=== PATIENT | male | born 1945 | race Caucasian/White ===

== ENCOUNTER → 2017-03-25 | Outpatient (CLI) | payer BC, MEDICARE ==
[2015-07-21 11:00] VITALS: BP 107/61
[~2017-03-25] MED LIST: DOCU-109 PO; GADOBUTROL 7.5 MMOL/7.5 ML VIAL IV ONE; OXYC-323 PO; OXYC-328 PO
--- NOTE | 2017-03-25 12:01 | KCIC ---
MRI of the cervical spine without contrast 03/25/2017 CLINICAL HISTORY: Neck and bilateral arm pain. TECHNIQUE: Unenhanced T1-weighted, T2-weighted and inversion recovery sagittal and gradient echo and T2-weighted axial images of the cervical spine were obtained. FINDINGS: Minimal lateral curvature of the cervical spine is seen convex to the right. There is straightening of the normal cervical lordosis. Degenerative signal changes and loss of height are seen involving all of the disks of the cervical spine. Degenerative signal changes are seen within the marrow surrounding these discs. No area of abnormal signal intensity is seen involving the cervical spinal cord. On the axial images at the C2-3 disc space there is a mild generalized disc bulge. Degenerative changes are seen involving the uncovertebral and facet joints, left greater than right. These findings do not result in significant central spinal canal stenosis. Mild left neural foraminal stenosis is seen. The right neural foramen is patent. At the C3-4 disc space there is a mild generalized disc bulge. Degenerative changes are seen involving the uncovertebral and facet joints bilaterally. The disc bulge is eccentric to the left. These findings efface the anterior and posterior CSF resulting in mild central spinal canal stenosis with mild left greater than right cord impingement. Moderate bilateral neural foraminal stenosis is seen. At the C4-5 disc space there is a moderate generalized disc bulge. This is eccentric to the left. Degenerative changes are seen involving the uncovertebral and facet joints bilaterally. These findings when combined result in moderate to severe central spinal canal stenosis with moderate to severe cord impingement. Mild to moderate left greater than right neural foraminal stenosis is seen. At the C5-6 disc space there is a mild generalized disc bulge. Superimposed on this disc bulge is a focal central disc osteophyte complex. This measures 5 mm in AP diameter. Degenerative changes are seen involving the uncovertebral and facet joints bilaterally. These findings result in moderate central spinal canal stenosis with moderate cord impingement. Mild to moderate bilateral neural foraminal stenosis is seen. At the C6-7 disc space there is a mild to moderate generalized disc bulge. This is eccentric to the right. Degenerative changes are seen involving the uncovertebral and facet joints, right greater than left. These findings when combined efface the anterior CSF resulting in mild central spinal canal stenosis without evidence of cord impingement. Mild right than left neural foraminal stenosis is seen. At the C7-T1 disc space there is a mild generalized disc bulge. Degenerative changes are seen involving the facet joints bilaterally. These findings do not result in significant central spinal canal or neural foraminal stenosis. IMPRESSION: Degenerative changes are seen throughout the cervical spine. These findings result in mild central spinal canal stenosis at at C3-4 with mild left greater than right cord impingement, moderate to severe central spinal canal stenosis with moderate to severe cord impingement at C4-5, moderate central spinal canal stenosis with moderate cord impingement at C5-6 and mild central spinal canal stenosis without evidence of cord impingement at C6-7. Multilevel neural foraminal stenosis of varying severity is seen as outlined above. Electronically signed by: Jun Gayle MD (03/25/2017 11:58 AM) [facility]
== END | disposition home or self-care (01) ==
LOC: KCIC MRI 07:44
PROVIDERS: ATTEND Family Medicine
DX: M48.06 Spinal stenosis, lumbar region (principal); M51.36 Other intervertebral disc degeneration, lumbar region; M48.02 Spinal stenosis, cervical region; M79.672 Pain in left foot; M79.602 Pain in left arm
CPT/HCPCS: 72141; 72158; 82565; A9585

== ENCOUNTER → 2017-12-03 | Outpatient (CLI) | payer BC, MEDICARE | END | disposition home or self-care (01) | LOC: PNCL 10:10 | DX: M51.36 Other intervertebral disc degeneration, lumbar region (principal); M48.061 Spinal stenosis, lumbar region without neurogenic claudication; M79.605 Pain in left leg | CPT/HCPCS: 99214 ==

== ENCOUNTER → 2017-12-28 | Outpatient (CLI) | payer BC, MEDICARE ==
[~2017-12-28] MED LIST changes: -DOCU-109 PO; -GADOBUTROL 7.5 MMOL/7.5 ML VIAL IV ONE; +IOHEXOL 180 MG/ML 10 ML VIAL.; +LIDOCAINE 1% PF 2 ML VIAL.; -OXYC-323 PO; -OXYC-328 PO; +methylPREDNISolone ACETATE 40 MG/ML VIAL.; +methylPREDNISolone ACETATE 80 MG/ML VIAL.
== END ==
LOC: PNCL 13:29
DX: M51.16 Intervertebral disc disorders with radiculopathy, lumbar region (principal); M96.1 Postlaminectomy syndrome, not elsewhere classified; M48.062 Spinal stenosis, lumbar region with neurogenic claudication; M19.90 Unspecified osteoarthritis, unspecified site
CPT/HCPCS: 62323; J1030; J1040; Q9965

== ENCOUNTER → 2018-01-11 | Outpatient (CLI) | payer BC, MEDICARE | END | disposition home or self-care (01) | LOC: PNCL 09:03 | DX: M51.16 Intervertebral disc disorders with radiculopathy, lumbar region (principal); M48.061 Spinal stenosis, lumbar region without neurogenic claudication | CPT/HCPCS: 99212 ==

== ENCOUNTER → 2018-02-09 | Outpatient (CLI) | payer BC, MEDICARE ==
[~2018-02-09] MED LIST changes: -LIDOCAINE 1% PF 2 ML VIAL.; +LIDOCAINE 2% PF 2ML VIAL.
== END | disposition home or self-care (01) ==
LOC: PNCL 13:32
DX: M51.16 Intervertebral disc disorders with radiculopathy, lumbar region (principal); M48.062 Spinal stenosis, lumbar region with neurogenic claudication; M96.1 Postlaminectomy syndrome, not elsewhere classified; M19.90 Unspecified osteoarthritis, unspecified site; Z82.49 Family history of ischemic heart disease and other diseases of the circulatory system; Z79.899 Other long term (current) drug therapy
CPT/HCPCS: 62323; J1030; J1040; J2001; Q9965

== ENCOUNTER → 2018-03-02 | Outpatient (CLI) | payer BC, MEDICARE ==
[2017-05-14 10:58] VITALS: BP 121/74
[~2018-03-02] MED LIST changes: +CETI10TA22 PO; +DIPH25CA58 PO; +DOCU-109 PO; +FAMO20TA5 PO; +HYDR-2762 PO; +IBUP-1027 PO; +IBUP-1060 PO; -IOHEXOL 180 MG/ML 10 ML VIAL.; -LIDOCAINE 2% PF 2ML VIAL.; +NAPR-695 PO; +OXYC-323 PO; +OXYC-328 PO; -methylPREDNISolone ACETATE 40 MG/ML VIAL.; -methylPREDNISolone ACETATE 80 MG/ML VIAL.
--- NOTE | 2018-03-02 17:56 | PAIN ---
DATE OF SERVICE: 03/02/2018 DIAGNOSES: 1. Lumbar radiculopathy with lumbar degenerative disk disease, post-lumbar laminectomy syndrome with spinal stenosis and neurogenic claudication. 2. Cervical radiculopathy with cervical degenerative disk disease and post-cervical laminectomy syndrome. HISTORY OF PRESENT ILLNESS: The patient is a 73-year-old male who returns for followup status post lumbar epidural steroid injection x 2. The patient is doing very well with about 75% improvement in his low back and left lower extremity. The patient reports his main complaint now is his neck and right upper extremity. He has had previous surgery on his neck with his MRI scan of the cervical spine, which was done 11/2017 showing significant multilevel spinal canal stenosis throughout the cervical spine, most pronounced at C6-C7 with iydtwjca-th-kptlvn stenosis. The patient reports this is becoming much more noticeable especially when he is playing the piano or holding objects. He has been dropping somethings. He dropped his notebook actually today while I was talking to him with his right arm. The patient reports it is aching and becoming much worse in the right arm with some motor loss and dropping items as noted. The patient reports it is aching, tingling, on and off in intensity, rated a 9 on a scale of 10 at its worst, 7 on average, 5 at its least and is a 7 today. The patient reports no new motor or sensory deficits of lower extremities. He is doing much better with the back and left leg, but has pain in his neck and shoulder, upper extremity with radiating pain has significantly increased over the past 2-3 weeks. The patient reports it is worse at night, awaken him from sleep frequently as well. PHYSICAL EXAMINATION: VITAL SIGNS: The patient's blood pressure is 151/96, pulse 72, respirations are 16, temperature is 98.0 degrees Fahrenheit, height is 5 feet 5 inches, weight is 152 pounds. GENERAL: The patient is awake, alert, oriented, appropriate, very pleasant demeanor. HEENT: Head shows normocephalic, atraumatic. Extraocular movements are intact, symmetrical. Oral cavity, mucous membranes are moist and pink. Dentition is intact. NECK: Shows anterior throat supple without palpable lymphadenopathy noted. Swallow reflex is symmetrical. CHEST: Shows normal on inspection. Breath sounds are clear. HEART: Shows S1, S2 clear. ABDOMEN: Soft, nontender, nondistended. BACK: Shows spine grossly in the midline. Cervical paraspinous musculature shows symmetrical on inspection, with palpation shows some qgbh-yy-ezqvsipd tenderness mostly in the inferior aspect of the cervical paraspinous musculature in the superior medial trapezius on the right greater than left, but symmetrical without evidence of atrophy, hypertrophy. No trigger points or radiation of pain. The patient has good rotational motion of cervical spine, both laterally as well as extension and flexion without significant increase in pain as well. EXTREMITIES: The patient's upper extremities show deep tendon reflexes 2+ in the biceps, triceps tendons. Motor exam is approximately 4 on a scale of 5 on the right, 5/5 on the left with blind installer strength bicep and tricep flexion. Shoulder shrug is strong and intact with some minor pain reported on the right side with resistance. Abduction of shoulders, however, is tender past 90 degrees with 180 degrees tenderness on the right side with radiating pain into the anterior biceps on the right with resistance. Options were discussed with the patient. The patient's old chart was reviewed as his current medication regimen and updated. Current review of systems is updated today as well. He is having increased radicular symptoms in the C6-C7 dermatomal distribution on the right arm. We will preauthorize the patient for a cervical epidural steroid injection as he is doing much better with his low back and left leg. His right arm again significant radicular pattern of pain, which the patient reports is somewhere in that prior to his cervical fusion again with MRI scan from showing significant stenosis at the C6-C7 level on the right as well. The patient will be given Medrol Dosepak in the meantime, was given instructions and side effects to be aware of with the medication. Follow up in approximately 2 weeks for plan on cervical epidural steroid injection at that time. ASSESSMENT: The patient has been doing stretching and strengthening exercises with his right upper extremity as well as his neck and shoulders ongoing. VIPUL ALONZO MD DR: JOSUÉ/jena JOB#: [id number] / [id number]
== END | disposition home or self-care (01) ==
LOC: PNCL 13:32
PROVIDERS: ATTEND Anesthesiology
DX: M51.16 Intervertebral disc disorders with radiculopathy, lumbar region (principal); M50.10 Cervical disc disorder with radiculopathy, unspecified cervical region; Z82.49 Family history of ischemic heart disease and other diseases of the circulatory system; Z79.899 Other long term (current) drug therapy
CPT/HCPCS: 99212

== ENCOUNTER → 2018-05-26 | Outpatient (CLI) | payer BC, MEDICARE ==
[2017-05-14 10:58] VITALS: BP 121/74
[~2018-05-26] MED LIST changes: +ACET325T9 PO; +ASPI1TAB58 PO; +CLIN150C14 PO; -HYDR-2762 PO; +HYDR-2765 PO; +HYDR-3164 PO; +METH750T2 PO; +MULT-658 PO; -OXYC-323 PO; -OXYC-328 PO; +OXYC1TAB15 PO; +OXYC1TAB22 PO
[2018-05-26 14:47] LABS: BASO # 0.1 x10^3/uL (0.0-0.2); BASO % 2 % (0-3); EOS # 0.3 x10^3/uL (0.0-0.7); EOS % 4 % (0-3); HEMOGLOBIN 13.9 g/dL (13.0-17.5); LYMPH # 1.5 x10^3/uL (1.0-4.8); LYMPH % 25 % (24-48); MEAN CORPUSCULAR HEMOGLOBIN 31 pg (25-35); MEAN CORPUSCULAR HGB CONC 35 g/dL (31-37); MEAN CORPUSCULAR VOLUME 89 fL (79-100); MONO # 0.7 x10^3/uL (0.0-1.1); MONO % 11 % (0-9); NEUT # 3.6 x10^3uL (1.8-7.7); NEUT % 58 % (31-73); PLATELET COUNT 232 x10^3/uL (140-400); RED BLOOD COUNT 4.49 x10^6/uL (4.30-5.70); RED CELL DISTRIBUTION WIDTH 13.3 % (11.5-14.5); WHITE BLOOD COUNT 6.2 x10^3/uL (4.0-11.0)
[2018-05-26 15:10] LABS: ALBUMIN 3.8 g/dL (3.4-5.0); ALBUMIN/GLOBULIN RATIO 1.3 (1.0-1.7); CALCIUM 8.7 mg/dL (8.5-10.1); GFR 73.7; POTASSIUM 4.1 mmol/L (3.5-5.1); TOTAL BILIRUBIN 0.4 mg/dL (0.2-1.0); TOTAL PROTEIN 6.8 g/dL (6.4-8.2)
== END | disposition home or self-care (01) ==
LOC: SURGPAT 13:47
PROVIDERS: ATTEND Neurological Surgery
DX: Z01.818 Encounter for other preprocedural examination (principal); M48.02 Spinal stenosis, cervical region; M54.12 Radiculopathy, cervical region
CPT/HCPCS: 36415; 80053; 85025; 87641

== ENCOUNTER 2018-06-02 10:30 | Observation (INO) | payer BC, MEDICARE ==
--- NOTE | 2018-06-01 16:55 | PREOP HP ---
DATE OF SERVICE: 06/02/2018 HISTORY OF PRESENT ILLNESS: The patient is a pleasant 73-year-old who has had cervical epidural steroid injections for pain, which he notes is in his neck and radiates into his right arm, forearm and hand. He notes numbness in the middle, ring and little fingers of his right hand. The problem started in 11/2017. He began spontaneously. He rates his pain as an 8/10. He feels the pain is constant. He says the change in position helps with his pain. He has been taking ibuprofen. He had epidural steroid injections, which he said lasted about few weeks. He, in the past, has undergone anterior cervical surgery at C4-C5 and C5-C6 and did well. PAST MEDICAL HISTORY: Arthritis. PAST SURGICAL HISTORY: Lumbar microdecompression L4-L5 with removal of synovial cyst in 07/2015 and ACDF at C4-C5, C5-C6 in 05/2017. FAMILY HISTORY: Heart disease and hypertension. 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 . He exercises weekly. He denies tobacco use. He consumes alcohol 1-2 times per week. ALLERGIES: No known drug allergies. CURRENT MEDICATIONS: Tylenol, famotidine, Benadryl, ibuprofen. REVIEW OF SYSTEMS: A 12-point review of systems was obtained and is noncontributory except for that mentioned above. PHYSICAL EXAMINATION: NEUROSURGERY EXAMINATION: GENERAL APPEARANCE: Alert, pleasant, no acute distress. HEAD: Normocephalic and atraumatic. NECK AND THYROID: Jvnm-wn-wptjqgdx tenderness with palpation of posterior cervical region, well healed incision. SKIN: Warm and dry. MUSCULOSKELETAL: Cervical paraspinal muscle bulk is normal, restricted range of motion of the cervical spine. Normal range of motion of the upper extremities bilaterally. EXTREMITIES: No clubbing, cyanosis or edema. NEUROLOGIC: Alert and oriented x 3, normal recent and remote memory, strength 5/5 in bilateral upper and lower extremities, sensory was intact to light touch in the upper and lower extremities except for decrease in sensation in middle, ring and little fingers of the right hand, reflexes were present and symmetric in the upper and lower extremities bilaterally, normal gait. IMAGING: I reviewed a cervical MRI scan. On that study, there is moderately severe stenosis at C6-C7. There is lateral recess stenosis, which is present bilaterally, which results in severe bilateral neural foraminal narrowing. ASSESSMENT/PLAN: I believe the problems at C6-C7 are responsible for the majority of his symptoms. My recommendation is consider an ACDF at this level. I discussed this with him in detail. He understands the surgery and the risks. He would like to go ahead. We will make the arrangements. EDWINA GEORGE MD DR: HERNAN/jena JOB#: [id number] / [id number] OMARI
[2018-06-02] VITALS (11 sets, daily range): BP systolic 132–171; BP diastolic 87–104
[~2018-06-02] VITALS: Ht 165.1 cm; Wt 72.1 kg
[~2018-06-02 10:30] MED LIST changes: +0.9 % SODIUM CHLORIDE 20 ML VIAL. IJ ONE; +BACITRACIN 50,000 UNIT in IV NORMAL SALINE 1000ML BAG 1,000 ML IRR ONE; +BUPIVAC MPF-EPI 0.5%-1:200000 30 ML VIAL. ONE; +GELATIN SPONGE SIZE 100. ONE; -HYDR-3164 PO; +HYDROmorphone 2 MG/ML VIAL IV PRN; +IV RINGERS,LACTATED 1000ML 1,000 ML IV SCH; +LIDOCAINE 1% PF 2 ML VIAL. ID PRN; +LIDOCAINE 2% PF Vial for OR 5 ML VIAL. ONE; -METH750T2 PO; +MORPHINE SULFATE 2 MG/ML VIAL. IV PRN; +ONDANSETRON PF 4 MG/2 ML VIAL. IV PRN; +PROCHLORPERAZINE 10 MG/2 ML VIAL. IV PRN; +PROPOFOL 20 ML IV ONE; +PROPOFOL 50 ML IV ONE; +REMIFENTANIL 2 MG VIAL. IV ONE; +ROCURONIUM 50 MG/5 ML VIAL. ONE; +THROMBIN TOPICAL 20,000 UNIT SPRAY.SYRN KIT TP ONE; +fentaNYL PF VIAL 100 MCG/2 ML VIAL IV PRN; +fentaNYL PF VIAL 100 MCG/2 ML VIAL ONE
[2018-06-02] MEDS ORDERED: HYDR-3164 PO (11:23)
[2018-06-02] MEDS ORDERED: DESFLURANE > 120 MINUTES IH ONE (12:48)
[2018-06-02] MEDS ORDERED: DEXAMETHASONE SOD PHOS 20 MG/5 ML VIAL. ONE (12:48)
[2018-06-02] MEDS ORDERED: ePHEDrine PF IN SALINE 50 MG/5 ML DISP.SYRIN IV ONE (12:48)
[2018-06-02] MEDS ORDERED: PHENYLEPHRINE in 0.9% NACL PF 1 MG/10 ML SYRINGE. IV ONE (12:52)
[2018-06-02] MEDS ORDERED: THROMBIN TOPICAL 20,000 UNIT SPRAY.SYRN KIT TP ONE (13:06)
[2018-06-02] MEDS ORDERED: PROPOFOL 50 ML IV ONE (13:44)
[2018-06-02] MEDS ORDERED: ASA/APAP/CAFFEINE 250/250/65MG TABLET. PO PRN (15:45)
--- NOTE | 2018-06-02 15:47 | OP ---
DATE OF SURGERY: 06/02/2018 PREOPERATIVE DIAGNOSES: Cervical spinal stenosis, C6-C7 with cervical radiculopathy and myelopathy. POSTOPERATIVE DIAGNOSIS: Cervical spinal stenosis, C6-C7 with cervical radiculopathy and myelopathy. OPERATION PERFORMED: Anterior cervical microdiscectomy, C6-C7; anterior cervical interbody fusion, C6-C7; anterior cervical plate, C6-C7. The operation also included removal of hardware, C6. SURGEON: Gilmer George M.D. GEOSPATIAL SYSTEMS INTEGRATOR: ALMA ROSA Michael assisted with the exposure, the microdiskectomy as well as the interbody fusion cage, plate and closure. OPERATIVE INDICATIONS: The patient is a pleasant 73-year-old man who developed intractable neck, shoulder, and arm pain along with unsteadiness. Most of the numbness was in the right upper extremity. He noted difficulty with unsteadiness, which affected primarily his left leg. On imaging studies, he had an anterior fusion extending from C4 through C6 and at C6-C7 there was posterior disc bulging and hard osteophytic spurring, which is associated with severe cervical spinal stenosis and foraminal narrowing. I recommended an anterior cervical microdiscectomy and fusion after we spent a considerable amount of time with conservative measures trying to avoid further surgery. He understood the surgery, the risks, technique and he wished to go ahead. DESCRIPTION OF PROCEDURE: Following general endotracheal anesthesia, the patient was positioned supine on the operating room table. The anterior cervical region was prepped and draped in standard fashion. ERENDIRA hose and AV impulse boots were applied for DVT prophylaxis. The microscope was draped. Fluoroscopy was draped and brought into the field. Monitoring was established. Ancef 2 grams was given less than 1 hour prior to the initiation of the surgery. Using fluoroscopic guidance, an incision was made from the midline around toward the right side in a skin crease about 2 fingerbreadths above the sternal notch. I dissected down the skin and subcutaneous tissue. I dissected down to the medial aspect of the sternocleidomastoid and carotid artery sheath down the anterior cervical vertebral body. I worked superiorly gently to reach the area with a plate. There was considerable scarring and I gently dissected through the scar and exposed the inferior portion of the plate as well as the C6-C7 disc region. I removed the screws from C6 plate and placed a distraction pin. I also placed a distraction pin in the body of C7. I did place lateral retractors wedged in the longus colli muscle. I brought in the microscope during this time. The remainder of surgery was done with microscope using microscopic technique. Initially, the disc space was not visualized and was partially covered with hard disc and I drilled through this hard disc with a high speed air drill and then entered the disc space. I performed discectomy with pituitary rongeurs. During this time, I drilled away the inferior portion of the plate and removed this from the field. I trimmed away the large bone spurring and smoothed this down with the high speed air drill and then continued my work posteriorly with pituitary as well as endplate scrapers. I did distract the disc space gently and exposed the large spurring posteriorly. I drilled this largely away and then used the 1 and 2 mm micro Kerrisons to fully peel this back and remove this. There was considerable soft disc mixed with hard disc and as I worked the dura moved posteriorly nicely and the area opened up beautifully. I did open the posterior ligament with an arachnoid knife and opened laterally bilaterally. Following this, I felt I had an excellent decompression. I scraped cartilaginous endplate and then measured and placed a 7 mm interbody fusion cage, which was packed with allograft bone. It was gently tapped into position and then I placed a 12 mm plate and four 14 mm screws without difficulty. I explored carefully, assured myself of excellent hemostasis. Fluoroscopic images looked quite good. I irrigated copiously and then closed the wound in layers with absorbable sutures. The skin was closed with 4-0 subcuticular stitch. The operation went very well and the patient was taken uneventfully to recovery room. I was quite pleased with the surgery. GILMER GEORGE MD DR: HERNAN/jena JOB#: [id number] / [id number] OMARI
[2018-06-02] MEDS ORDERED: 0.9 % SODIUM CHLORIDE 10 ML DISP.SYRIN. IV PRN (16:00)
[2018-06-02] MEDS ORDERED: HYDROcodone/APAP 5/325MG 1 TAB TABLET PO PRN (16:00)
[2018-06-02] MEDS ORDERED: MAGNESIUM HYDROXIDE 2,400 MG/30 ML ORAL.SUSP. PO PRN (16:00)
[2018-06-02] MEDS ORDERED: MAG HYDROX/ALUMINUM HYD/SIMETH 30 ML ORAL.SUSP PO PRN (16:00)
[2018-06-02] MEDS ORDERED: ACETAMINOPHEN 325 MG TABLET. PO PRN (16:00)
[2018-06-02] MEDS ORDERED: fentaNYL PF VIAL 100 MCG/2 ML VIAL IV PRN ×2 (16:00)
[2018-06-02] MEDS ORDERED: diphenhydrAMINE HCL 25 MG CAPSULE PO PRN (16:00)
[2018-06-02] MEDS ORDERED: ONDANSETRON PF 4 MG/2 ML VIAL. IV PRN (16:00)
[2018-06-02] MEDS ORDERED: CALCIUM CARBONATE 500 MG TAB.CHEW PO PRN (16:00)
[2018-06-02] MEDS: HYDROcodone/APAP 5/325MG 1 TAB TABLET PO PRN (18:03)
[2018-06-02] MEDS: POTASSIUM CL 20MEQ D5-0.45NACL 1,000 ML IV SCH (19:35)
[2018-06-02] MEDS: METHOCARBAMOL 750 MG TABLET PO SCH (20:39)
[2018-06-02] MEDS: ceFAZolin SODIUM 1 GM in IV DEXTROSE 5% 50 ML IV SCH (20:40)
[2018-06-02] MEDS: DOCUSATE SODIUM 100 MG CAPSULE. PO SCH (20:40)
[2018-06-03] MEDS: ceFAZolin SODIUM 1 GM in IV DEXTROSE 5% 50 ML IV SCH (03:46)
[2018-06-03 03:51] VITALS: BP 141/84
[2018-06-03] MEDS: HYDROcodone/APAP 5/325MG 1 TAB TABLET PO PRN (03:57)
[2018-06-03] MEDS: POTASSIUM CL 20MEQ D5-0.45NACL 1,000 ML IV SCH (05:55)
[2018-06-03 05:56] VITALS: BP 149/87
[2018-06-03] MEDS: DOCUSATE SODIUM 100 MG CAPSULE. PO SCH (07:56)
[2018-06-03] MEDS: METHOCARBAMOL 750 MG TABLET PO SCH (07:56)
[2018-06-03] MEDS ORDERED: MULTIVITAMIN with MINERAL TABLET. PO SCH (09:00)
--- NOTE | 2018-06-03 09:42 | DISCH ---
DISCHARGE INSTRUCTIONS Condition on Discharge Condition on Discharge: Stable Activity After Discharge Activity Instructions for Disc: Activity as tolerated, Avoid exertion Bathing Instructions: Shower-keep dressing dry, No Tub Bath until see Lifting Instructions after Dis: No heavy lifting, No pulling or pushing, Do not lift >10 pounds Exercise Instruction after Dis: Progress as tolerated Driving Instructions after Dis: Do not drive Weight Bearing Status after Di: As tolerated Diet after Discharge Diet after Discharge: Regular Additional Diet Restrictions: resume home diet Wound Incision Care Wound/Incision Care: Ice to area for comfort, May get incision wet Other wound/incision instructi: may remove dressing in 48 hrs if dry then may shower, no soaking Contacting the after DC Call your doctor for: Concerns you may have Follow-Up Follow up with: Dr. George's nurse in 2 weeks [phone] EDWINA GEORGE MD Jun 03, 2018 09:42
[2018-06-03] MEDS ORDERED: METH750T2 PO (09:44)
[2018-06-03] MEDS ORDERED: DOCU-109 PO (09:44)
[2018-06-03] MEDS ORDERED: PERFLUTREN PROTEIN-A MICROSPHR 0.22 MG/ML 3 ML VIAL. IV ONE ×2 (09:49→10:00)
--- NOTE | 2018-06-03 10:02 | DS ---
DATE OF DISCHARGE: 06/03/2018 DATE OF SURGERY: 06/02/2018 DISCHARGE DIAGNOSES: Cervical spinal stenosis at C6-C7 with cervical radiculopathy and myelopathy. OPERATION PERFORMED: Anterior cervical microdiscectomy and fusion C6-C7. HISTORY OF PRESENT ILLNESS: The patient is a pleasant 73-year-old who developed intractable neck, shoulder, and arm pain along with unsteadiness. Most of the numbness was in the right upper extremity. He did note difficulty with unsteadiness, which affected primarily his left leg. On imaging studies, he had a previous fusion extending from C4 through C6 and at C6-C7, there was posterior disk bulging and hard osteophytic spurring, which was associated with severe spinal stenosis and foraminal narrowing. I recommended ACDF at C6-C7. He understood the surgery and the risk and wished to proceed. HOSPITAL COURSE: He was admitted to the floor postoperatively, where he has done very well. He has been up ambulating in the room and in the halls. Physical therapy was initiated and instruction was given to him regarding his activities. His pain is well controlled and he is in good condition to discharge home. DISCHARGE MEDICATIONS: Resume his medications per the MRAD. DISCHARGE INSTRUCTIONS: He was instructed regarding incision care, activity restrictions and expectations for the next several weeks. He will follow up in our office in 2 weeks. He understands to call with any questions or concerns. EDWINA GEORGE MD DR: CIERA/jena JOB#: [id number] / [id number] OMARI
[2018-06-03 10:57] VITALS: BP 118/71
--- NOTE | 2018-06-07 18:07 | PATHOLOGY ---
[facility] Accession Number: [id number] . 01 Material submitted: . CERVICAL DISC . 01 Clinical history: . Cervical stenosis, radiculopathy . 02 Diagnosis: Segments of fibrocartilaginous tissue and small segments of bone, cervical disc: - Degenerative changes of fibrocartilaginous tissue. (JPM:olga; 06/07/2018) QMS/06/07/2018 . 02 Comment: There is no evidence of an acute inflammatory process or malignancy. . 02 Electronically signed: . Eduardo Lucas MD, Pathologist NPI- [id number] . 01 Gross description: . Received in formalin labeled "Mukund III, Jonel, cervical disc," are several pieces of glistening, fibrous tissue measuring 2.5 x 0.6 x 0.2 cm in aggregate dimensions, containing small fragments of possible bone. The tissue is filtered and submitted entirely in cassette A1, following decalcification. (TSD; 06/03/2018) TOB/TOB . 02 Pathologist provided ICD-10: M50.30 . 02 CPT . 386617, [id number] Specimen Comment: A courtesy copy of this report has been sent to Specimen Comment: [phone]. Specimen Comment: Report sent to Performed at: 01 [facility] [address], [place], [place] [id number] MD Jagdish Barrera MD Phone: [phone] Performed at: 02 [facility] [address] [place], [place] [id number] MD Eduardo Lucas MD Phone: [phone]
== END 2018-06-03 13:10 | disposition home or self-care (01) ==
LOC: SURG 10:30 → EDSTATUS 12:00 → 4 SOUTHEST 17:00
PROVIDERS: ADMIT Neurological Surgery; ATTEND Neurological Surgery
DX: M48.02 Spinal stenosis, cervical region (principal); M54.12 Radiculopathy, cervical region; Z82.49 Family history of ischemic heart disease and other diseases of the circulatory system
CPT/HCPCS: 20930; 22551; 22853; 76000; 88304; 88311; 96365; 96366; 97116; 97162; 97530; A7015; C1713; C1821; G0378; G0379; G8978; G8979; G8980; J0690; J1100; J2001; J2370; J2704; J3010; J3490; J7030; J7120; Q0163; Q9956

== ENCOUNTER → 2018-11-02 | Outpatient (CLI) | payer BC, MEDICARE ==
[~2018-11-02] MED LIST changes: -0.9 % SODIUM CHLORIDE 20 ML VIAL. IJ ONE; -BACITRACIN 50,000 UNIT in IV NORMAL SALINE 1000ML BAG 1,000 ML IRR ONE; -BUPIVAC MPF-EPI 0.5%-1:200000 30 ML VIAL. ONE; -GELATIN SPONGE SIZE 100. ONE; +HYDR-3164 PO; -HYDROmorphone 2 MG/ML VIAL IV PRN; +IOHEXOL 180 MG/ML 10 ML VIAL. IJ ONE; -IV RINGERS,LACTATED 1000ML 1,000 ML IV SCH; -LIDOCAINE 1% PF 2 ML VIAL. ID PRN; -LIDOCAINE 2% PF Vial for OR 5 ML VIAL. ONE; +METH750T2 PO; -MORPHINE SULFATE 2 MG/ML VIAL. IV PRN; -ONDANSETRON PF 4 MG/2 ML VIAL. IV PRN; -PROCHLORPERAZINE 10 MG/2 ML VIAL. IV PRN; -PROPOFOL 20 ML IV ONE; -PROPOFOL 50 ML IV ONE; -REMIFENTANIL 2 MG VIAL. IV ONE; -ROCURONIUM 50 MG/5 ML VIAL. ONE; -THROMBIN TOPICAL 20,000 UNIT SPRAY.SYRN KIT TP ONE; -fentaNYL PF VIAL 100 MCG/2 ML VIAL IV PRN; -fentaNYL PF VIAL 100 MCG/2 ML VIAL ONE
[2018-11-02 08:28] LABS: CREATININE 1.1 mg/dL (0.7-1.3)
[2018-11-02 09:26] VITALS: BP 165/82
--- NOTE | 2018-11-02 10:17 | RAD ---
Lumbar myelogram, 11/02/2018: History: Lumbar spondylolisthesis, left reticula Under local anesthesia, aseptic conditions and fluoroscopic guidance a lumbar puncture was performed at the mid L2 level utilizing a 25-gauge Sophia spinal needle. Good clear CSF flow was obtained following which 14 cc of Omnipaque 180 was injected into the thecal sac. The spinal needle was then removed and appropriate digital imaging performed. 2.6 minutes of fluoroscopy time was utilized. 13 fluoroscopic spot images were recorded. The patient tolerated the procedure well and was sent to CT in good condition. The following findings are delineated on the myelogram: 1. There is a mild right convexity lumbar scoliosis with a rotatory component at L4-5. There is moderate degenerative disc disease throughout the lumbar spine. 2. There is a mild grade 1 spondylolisthesis at L4-5 which does not appear to change significantly on the upright flexion and extension views. There are prominent anterior, posterior and bilateral extradural defects at this level producing severe central spinal stenosis at this level. 3. At L2-3 there are moderate anterior and posterior extradural defects producing severe central spinal stenosis. No definite subluxation or instability is seen on upright flexion and extension at this level. 4. There is a slight retrolisthesis at L1-2 which reduces slightly with flexion. There is a mild associated anterior extradural defect producing mild central spinal stenosis. 5. There is lack of opacification of the L4 nerve root sleeves bilaterally. There is decreased opacification of the right L5 nerve root sleeve compared to the left. CT lumbar spine-post myelogram, 11/02/2018: Multidetector CT imaging was performed with multiplanar reconstructions produced. The following findings are delineated: 1. There is disc space narrowing throughout the lumbar spine with multiple vacuum disks and marginal spurs. No fracture or destructive bony lesion is seen. 2. At L1-2 there is mild facet joint arthropathy with minimal retrolisthesis. There is moderate broad-based posterior disc bulging. No significant central spinal stenosis is evident. There is moderate bilateral foraminal encroachment. 3. At L2-3 there is slight retrolisthesis in the supine position for the CT imaging. There is moderate broad-based posterior disc bulging. There are degenerative changes involving the facet joints with posterior ligamentous thickening. The combination of findings is causing severe central spinal stenosis and moderate left foraminal narrowing medially. 4. At L3-4 there is mild posterior marginal spurring and disc bulging. There is moderate posterior ligamentous thickening. The thecal sac measures 9 mm in AP diameter at the midline. There is mild to moderate left foraminal encroachment. 5. At L4-5 there is a vacuum disc phenomena with grade 1 anterolisthesis. There is a laminectomy defect on the left. There is a moderate sized abnormal soft tissue density along the posterior disc margin, worse on the left compatible with disc herniation and/or scarring. There is hypertrophic bone posteriorly. The facet joints appear to been partially fused although linear lucencies persist in the pars regions at this level. The combination of findings is causing severe central spinal stenosis, severe left foraminal encroachment and moderate right foraminal encroachment at this level. 6. At L5-S1 there is a vacuum disc phenomena with mild posterior marginal spurring and disc bulging. There are moderate degenerative changes involving the facet joints bilaterally. The central spinal canal is well-preserved. There is mild bilateral foraminal narrowing. IMPRESSION: 1. Moderate to severe multilevel degenerative changes as described above. 2. Severe associated central spinal stenosis at L2-3 and L4-5. 3. Severe left foraminal encroachment at L4-5. PQRS Compliance Statement: One or more of the following individualized dose reduction techniques were utilized for this examination: 1. Automated exposure control 2. Adjustment of the mA and/or kV according to patient size 3. Use of iterative reconstruction technique
== END | disposition home or self-care (01) ==
LOC: RAD 07:59
PROVIDERS: ATTEND Neurological Surgery
DX: M48.061 Spinal stenosis, lumbar region without neurogenic claudication (principal); M43.16 Spondylolisthesis, lumbar region; M51.36 Other intervertebral disc degeneration, lumbar region
CPT/HCPCS: 36415; 62304; 72132; 82565; 84520; Q9965; 72265

== ENCOUNTER → 2018-12-06 | Outpatient (CLI) | payer BC, MEDICARE ==
[2018-11-02 09:26] VITALS: BP 165/82
[~2018-12-06] MED LIST changes: -IOHEXOL 180 MG/ML 10 ML VIAL. IJ ONE
[2018-12-06 14:35] LABS: BASO # 0.1 x10^3/uL (0.0-0.2); BASO % 2 % (0-3); EOS # 0.2 x10^3/uL (0.0-0.7); EOS % 4 % (0-3); HEMOGLOBIN 13.7 g/dL (13.0-17.5); LYMPH # 1.2 x10^3/uL (1.0-4.8); LYMPH % 18 % (24-48); MEAN CORPUSCULAR HEMOGLOBIN 30 pg (25-35); MEAN CORPUSCULAR HGB CONC 34 g/dL (31-37); MEAN CORPUSCULAR VOLUME 88 fL (79-100); MONO # 0.6 x10^3/uL (0.0-1.1); MONO % 9 % (0-9); NEUT # 4.6 x10^3uL (1.8-7.7); NEUT % 67 % (31-73); PLATELET COUNT 189 x10^3/uL (140-400); RED BLOOD COUNT 4.54 x10^6/uL (4.30-5.70); RED CELL DISTRIBUTION WIDTH 13.3 % (11.5-14.5); WHITE BLOOD COUNT 6.8 x10^3/uL (4.0-11.0)
[2018-12-06 14:47] LABS: PROTHROMBIN TIME PATIENT 13.9 SEC (11.7-14.0)
[2018-12-06 15:06] LABS: ALBUMIN 3.8 g/dL (3.4-5.0); ALBUMIN/GLOBULIN RATIO 1.5 (1.0-1.7); CALCIUM 8.7 mg/dL (8.5-10.1); CREATININE 0.9 mg/dL (0.7-1.3); GFR 83.2; TOTAL BILIRUBIN 0.3 mg/dL (0.2-1.0); TOTAL PROTEIN 6.4 g/dL (6.4-8.2)
== END | disposition home or self-care (01) ==
LOC: SURGPAT 13:27
PROVIDERS: ATTEND Neurological Surgery
DX: Z01.818 Encounter for other preprocedural examination (principal); M48.062 Spinal stenosis, lumbar region with neurogenic claudication; M43.16 Spondylolisthesis, lumbar region; M54.16 Radiculopathy, lumbar region; Z79.899 Other long term (current) drug therapy
CPT/HCPCS: 36415; 80053; 85025; 85610; 85730; 87641

== ENCOUNTER 2018-12-13 05:53 | Inpatient (IN) | payer BC, MEDICARE ==
--- NOTE | 2018-12-09 18:00 | PREOP HP ---
DATE OF SERVICE: Roscoe Salcedo dictating for Dr. Gilmer George. DATE OF SURGERY: 12/13/2018. HISTORY OF PRESENT ILLNESS: The patient is a pleasant 73-year-old who is having difficulty with left-sided lower back pain along with pain which radiates into his left buttock and posterolateral thigh and leg. The problem has been present for about 3 months. He rates his pain as 7/10. Lying down increases pain. Ice and heat help him. Because of persistent severe pain, I studied him with lumbar myelography. PAST MEDICAL HISTORY: Arthritis. PAST SURGICAL HISTORY: Lumbar decompression L4-L5 with removal of synovial cyst 07/2015 and ACDF C4-C5, C5-C6 in 05/2017 and ACDF C6-C7 in 05/2018. FAMILY HISTORY: Heart disease and hypertension. 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 . Exercises weekly. Denies tobacco use. Consumes alcohol 1-2 times per week. ALLERGIES: No known drug allergies. CURRENT MEDICATIONS: Tylenol, famotidine, Benadryl, ibuprofen, naproxen. REVIEW OF SYSTEMS: A 12-point review of systems was obtained and is noncontributory except for that mentioned above. PHYSICAL EXAMINATION: NEUROSURGERY EXAMINATION: GENERAL APPEARANCE: Alert, pleasant, no acute distress. HEAD: Normocephalic and atraumatic. SKIN: Warm and dry. MUSCULOSKELETAL: Lumbar paraspinal muscle bulk is normal, restricted range of motion of the lumbar spine, [id number] tenderness of the lumbar spine with palpation, normal range of motion of the lower extremities bilaterally. EXTREMITIES: No clubbing, cyanosis or edema. NEUROLOGIC: Alert and oriented x 3. Normal recent and remote memory, strength 5/5 in bilateral lower extremities. Sensory was intact to light touch in lower extremities bilaterally, Reflexes are present and symmetric in bilateral lower extremities, negative straight leg raising bilaterally, normal gait. IMAGING: Reviewed. On the lumbar myelogram, there are a number of abnormalities. There is a lumbar spinal stenosis, which is severe at L2-L3. At L4-L5, there is a grade 1 anterolisthesis along with laminectomy defect on the left along with exuberant hypertrophic bone. At this level, there is severe central canal stenosis as well as severe left foraminal encroachment. ASSESSMENT: 1. Spinal stenosis, lumbar region with neurogenic claudication. 2. Spondylolisthesis, lumbar region. 3. Radiculopathy, lumbar region. 4. Low back pain. PLAN: The patient has severe progressing leg pain and back pain. There is severe stenosis at L2-L3, and he should undergo a decompression at this level. Additionally, there is degenerative scoliosis which involves L3, L4, L5 along with severe stenosis at L4-L5. I recommended in addition to laminectomy at L2-L3 and a laminectomy at L4-L5, an instrumentation at L3 through L5 with interbody fusion anteriorly at L4-L5. I discussed with him the surgery and the risks involved, the technique of surgery and expected postoperative course. He understands, and he would like to go ahead. We will make the arrangements. GILMER GEORGE MD DR: HERNAN/jena JOB#: [id number] / [id number]
[2018-12-13] VITALS (9 sets, daily range): BP systolic 97–113; BP diastolic 56–74
[~2018-12-13] VITALS: Ht 165.1 cm; Wt 71.2 kg
[2018-12-13] MEDS ORDERED: BACITRACIN 50,000 UNIT in IV NORMAL SALINE 1000ML BAG 1,000 ML IRR ONE (06:00)
[2018-12-13] MEDS ORDERED: KETOROLAC 60 MG/2 ML INJ FOR OR. ONE (06:23)
[2018-12-13] MEDS ORDERED: GELATIN SPONGE SIZE 12-7MM SPONGE. ONE ×2 (06:23→12:42)
[2018-12-13] MEDS ORDERED: BUPIVAC MPF-EPI 0.5%-1:200000 30 ML VIAL. ONE (06:23)
[2018-12-13] MEDS ORDERED: THROMBIN TOPICAL 20,000 UNIT SPRAY.SYRN KIT TP ONE (06:24)
[2018-12-13] MEDS ORDERED: PROCHLORPERAZINE 10 MG/2 ML VIAL. IV PRN (07:00)
[2018-12-13] MEDS ORDERED: LIDOCAINE 1% PF 2 ML VIAL. ID PRN (07:00)
[2018-12-13] MEDS ORDERED: HYDROmorphone 2 MG/ML VIAL IV PRN (07:00)
[2018-12-13] MEDS ORDERED: ONDANSETRON PF 4 MG/2 ML VIAL. IV PRN ×2 (07:00→14:30)
[2018-12-13] MEDS ORDERED: IV RINGERS,LACTATED 1000ML 1,000 ML IV SCH (07:00)
[2018-12-13] MEDS ORDERED: fentaNYL PF VIAL 100 MCG/2 ML VIAL IV PRN ×2 (07:00→14:30)
[2018-12-13] MEDS ORDERED: MORPHINE SULFATE 2 MG/ML VIAL. IV PRN (07:00)
--- NOTE | 2018-12-13 08:12 | RAD ---
CT of the lumbar spine without contrast, 12/13/2018: HISTORY: Lumbar spondylolisthesis, stenosis, lumbar radiculopathy, BrainLab exam Noncontrast scans were obtained with multiplanar reconstructions produced. The data was transferred to the operating room to aid in the patient's stereotactically guided surgery. The following findings are delineated: 1. There is a mild thoracolumbar scoliosis with disc space narrowing, vacuum disc phenomena and marginal spurring throughout the lumbar spine. 2. At L1-2 there is a mild reverse spondylolisthesis with moderate posterior disc protrusion this is producing borderline central spinal stenosis and moderate inferior foraminal narrowing bilaterally. 3. At L2-3 there is moderate posterior disc bulging and spurring. There is moderate posterior ligamentous thickening due to facet joint arthropathy. The combination of findings is causing moderate to severe central spinal stenosis and moderate left foraminal narrowing. 4. At L3-4 there is moderate posterior marginal spurring. There is moderate posterior ligamentous thickening due to facet joint arthropathy. The combination of findings is causing mild central spinal stenosis and moderate left foraminal narrowing. 5. At L4-5 there are extensive hypertrophic degenerative changes involving the facet joints with grade 1 anterolisthesis. There are postsurgical changes posteriorly. The combination of findings is causing severe central spinal and bilateral foraminal stenosis at this level. 6. At L5-S1 there is moderate posterior spurring as well as a small partially calcified posterior disc protrusion which is most prominent on the left extending inferiorly from the disc level. There is moderate posterior ligamentous thickening related to facet joint arthropathy. The combination of findings is causing mild bilateral foraminal narrowing. Electronically signed by: Larry Concepcion MD (12/13/2018 8:09 AM) [facility]
[2018-12-13] MEDS ORDERED: ROCURONIUM 50 MG/5 ML VIAL. ONE (08:23)
[2018-12-13] MEDS ORDERED: MIDAZOLAM HCL/PF 2 MG/2 ML VIAL. ONE (08:23)
[2018-12-13] MEDS ORDERED: fentaNYL PF VIAL 250 MCG/5 ML VIAL ONE (08:24)
[2018-12-13] MEDS ORDERED: REMIFENTANIL 2 MG VIAL. IV ONE ×2 (08:24→12:17)
[2018-12-13] MEDS ORDERED: PHENYLEPHRINE 10 MG/ML VIAL. ONE ×2 (09:14)
[2018-12-13] MEDS ORDERED: PHENYLEPHRINE in 0.9% NACL PF 1 MG/10 ML SYRINGE. IV ONE (09:14)
[2018-12-13] MEDS ORDERED: PROPOFOL 20 ML IV ONE (09:15)
[2018-12-13] MEDS ORDERED: ONDANSETRON PF 4 MG/2 ML VIAL. ONE (09:15)
[2018-12-13] MEDS ORDERED: PROPOFOL 50 ML IV ONE ×2 (09:15→12:16)
[2018-12-13] MEDS ORDERED: DEXAMETHASONE SOD PHOS 20 MG/5 ML VIAL. ONE (09:15)
[2018-12-13] MEDS ORDERED: LIDOCAINE 2% PF 5 ML VIAL. ONE (09:15)
[2018-12-13] MEDS ORDERED: ceFAZolin 1GM IVPB FOR OMNI 100 ML IV ONE (12:11)
[2018-12-13] MEDS ORDERED: CALCIUM CARBONATE 500 MG TAB.CHEW PO PRN (14:30)
[2018-12-13] MEDS ORDERED: MAGNESIUM HYDROXIDE 2,400 MG/30 ML ORAL.SUSP. PO PRN (14:30)
[2018-12-13] MEDS ORDERED: MAG HYDROX/ALUMINUM HYD/SIMETH 30 ML ORAL.SUSP PO PRN (14:30)
[2018-12-13] MEDS ORDERED: NALOXONE 0.4 MG/ML VIAL. IV PRN (14:30)
[2018-12-13] MEDS ORDERED: 0.9 % SODIUM CHLORIDE 10 ML DISP.SYRIN. IV PRN (14:30)
[2018-12-13] MEDS ORDERED: ACETAMINOPHEN 325 MG TABLET. PO PRN (14:30)
[2018-12-13] MEDS ORDERED: diphenhydrAMINE HCL 25 MG CAPSULE PO PRN (14:30)
[2018-12-13] MEDS ORDERED: GLYCOPYRROLATE 1 MG/5 ML VIAL. ONE (15:11)
[2018-12-13] MEDS ORDERED: NEOSTIGMINE METHYLSULFATE 5 MG/5 ML SYRINGE. ONE (15:11)
[2018-12-13] MEDS ORDERED: DESFLURANE > 120 MINUTES IH ONE (15:42)
[2018-12-13] MEDS ORDERED: fentaNYL PF VIAL 100 MCG/2 ML VIAL ONE (16:15)
[2018-12-13] MEDS: fentaNYL PF VIAL 100 MCG/2 ML VIAL IV PRN ×2 (16:21→16:57)
[2018-12-13] MEDS: MULTIVITAMIN with MINERAL TABLET. PO SCH (18:09)
--- NOTE | 2018-12-13 19:39 | OP ---
DATE OF SURGERY: 12/13/2018 PREOPERATIVE DIAGNOSES: 1. Degenerative scoliosis. 2. Spondylolisthesis, L4-L5. 3. Lumbar spinal stenosis L2-L3, L4-L5 with neural foraminal narrowing present L3-L4, L4-L5. OPERATION PERFORMED: Lumbar laminectomy, L2-L3, L4-L5; posterior instrumentation, L3, L4, L5; posterolateral fusion, L3, L4, L5 with allograft bone; anterior discectomy L4-L5 from an anterolateral oblique approach; anterior interbody fusion L4-L5 from an anterolateral oblique approach with cage packed with allograft bone. SURGEON: Gilmer George M.D. FACILITY SERVICE MANAGER: ALMA ROSA Michael assisted with the microdecompression and instrumentation. OPERATIVE INDICATIONS: The patient is a pleasant 73-year-old man, who has undergone previous surgery and has developed progressive problems with degenerative scoliosis, foraminal narrowing, lumbar spinal stenosis and lumbar radiculopathy. On imaging studies, he had the above-mentioned findings, which included spondylolisthesis and stenosis and neural foraminal narrowing. I recommended lumbar surgery. I spoke with him about the surgery, the risks, technique and expected postoperative course and he wished to go ahead. DESCRIPTION OF PROCEDURE: Following general endotracheal anesthesia, the patient was positioned prone on the Elijah table. Lumbar region was prepped and draped in standard fashion. ERENDIRA hose and AV impulse boots were applied for DVT prophylaxis. Microscope was draped. Fluoroscopy was draped and brought into the field. Monitoring was established. Ancef 2 grams was given less than 1 hour prior to initiation of the surgery. The iliac pins were placed into the right iliac crest and the BrainLAB system was initialized. I then made a midline posterior incision extending from L2-L5, dissected down to skin and subcutaneous tissue, reflected the paraspinal muscles. There was considerable scarring in the mid and lower lumbar region as well as the spine being somewhat rotated and the spondylolisthesis, but I was able to obtain an excellent exposure. I drilled in the posterior aspect of the pedicles of L3, L4, L5 bilaterally past the black ball followed by ball tip probe, followed by tap and then used bone wax to close the openings. I then brought in the microscope and did a left direct laminectomy at L2-L3 by placing a self-retaining retractor at this location and drilling across the midline posteriorly from the left side and then working from medial to lateral and peeling away very thickened ligamentum flavum and fully decompressing this region. There was moderate amount of lipomatous material within the canal, which I also removed to help with the decompression. I then went down to L4-L5 on the left side, which was more symptomatic. He had previous surgery and there was considerable scarring. I then forewent to the right side and drilled slightly to the left side of the midline where his previous surgery had ended and then worked laterally to the right and performing a partial foraminotomy. The ligamentum flavum was heavily scarred to the underlying dura, but I was able to remove significant amounts and decompressed the region. I then placed pedicle screws using the Chooos system using 6.5 x 40 or 45 mm screws, these were placed, the rods were placed, nuts were placed, but the system was not torqued. I then went to the right side and tilted the table away from me, made an incision in the right flank and passed the Flicstart system with a sheath down to dock just at the lateral edge where the pedicle of L5 attaches to the bone and I moved slightly superior to this to avoid the distal L4 root. I passed a K-wire followed by dilator followed by a working channel. Through this, then I performed a discectomy with pituitary rongeurs and disc scrapers. I then placed a shield to protect the L4 root and then passed a trial, obtained films which I felt looked quite good with opening of the interspace and decompression of the neural foramina. Then, I packed allograft bone into the disc space followed by placing the interbody fusion cage, which was also packed with allograft. This was driven into position and oriented. Films looked quite good with regard to positioning. I released the cage and then I began to torque the rods sequentially. During this time, I excoriated the transverse processes and lateral facets of L3, L4 and L5 and packed allograft bone into each lateral gutter. I did at this time also put a needle into the left iliac crest and removed 20 mL of bone marrow to use with the allograft bone. I did distract at L3-L4 on the left to ensure that the foramen was opened and as I worked, I felt that I had an excellent realignment and reduction. I did use reducing screws in L4. The tabs were then removed after the system was torqued sequentially. I irrigated copiously. I closed the wound in layers with absorbable suture. I was satisfied with the films. I was quite pleased with the surgery. GILMER GEORGE MD DR: HERNAN/jnea JOB#: [id number] / [id number] OMARI
[2018-12-13] MEDS: POTASSIUM CL 20MEQ D5-0.45NACL 1,000 ML IV SCH (19:45)
[2018-12-13] MEDS: DOCUSATE SODIUM 100 MG CAPSULE. PO SCH ×2 (20:55)
[2018-12-13] MEDS: ACETAMINOPHEN 500 MG TABLET PO SCH (20:55)
[2018-12-13] MEDS: ceFAZolin SODIUM IV Push 1 GM VIAL. IVP SCH (20:56)
[2018-12-13] MEDS ORDERED: ceFAZolin SODIUM 1 GM in IV DEXTROSE 5% 50 ML IV SCH (22:00)
[2018-12-13] MEDS: oxyCODONE/APAP 5/325 1 TAB TABLET PO PRN (22:21)
[2018-12-14] VITALS (8 sets, daily range): BP systolic 76–120; BP diastolic 46–70
[2018-12-14] MEDS: POTASSIUM CL 20MEQ D5-0.45NACL 1,000 ML IV SCH (00:34)
[2018-12-14] MEDS: oxyCODONE/APAP 5/325 1 TAB TABLET PO PRN ×4 (03:02→22:43)
[2018-12-14] MEDS: ceFAZolin SODIUM IV Push 1 GM VIAL. IVP SCH ×2 (05:31→12:19)
[2018-12-14] MEDS: METHOCARBAMOL 750 MG TABLET PO PRN (06:19)
[2018-12-14] MEDS: DOCUSATE SODIUM 100 MG CAPSULE. PO SCH ×3 (07:41→20:45)
[2018-12-14] MEDS: MULTIVITAMIN with MINERAL TABLET. PO SCH (07:41)
[2018-12-14] MEDS: ACETAMINOPHEN 500 MG TABLET PO SCH ×2 (09:00→20:46)
[2018-12-14] MEDS ORDERED: IV NORMAL SALINE 500ML BAG 500 ML IV ONE (13:00)
--- NOTE | 2018-12-14 13:13 | PDOC ---
PROGRESS NOTES Subjective Subjective POD #1 leg pain resolved back / incisional pain controlled with medication Objective Objective Vital Signs Date Time Temp Pulse Resp B/P (MAP) Pulse Ox O2 Delivery O2 Flow Rate FiO2 12/14/18 11:27 74 20 94/68 (77) 96 Room Air 12/14/18 10:15 99.2 99.2 12/14/18 06:21 2.0 Intake and Output 12/14/18 06:59 Intake Total 900 ml Output Total 2825 ml Balance -1925 ml Intake Oral 900 ml Output Urine Total 2575 ml Estimated Blood Loss 250 ml Physical Exam General: Alert, Oriented X3, Cooperative MUSCULOSKELETAL: Other (CACERES) Neuro: Normal speech Skin: Other (dressing C,D,I) Plan Plan of Care ok to dc f/u 2 weeks Comment Review of Relevant I have reviewed the following items nina (where applicable) has been applied. Labs Laboratory Tests Test 12/14/18 11:45 Hemoglobin 12.2 g/dL (13.0-17.5) Laboratory Tests Test 12/14/18 11:45 Hemoglobin 12.2 g/dL (13.0-17.5) Medications Current Medications Ondansetron HCl (Zofran) 4 mg PRN Q6HRS PRN IV NAUSEA/VOMITING; Start 12/13/18 at 07:00; Stop 12/13/18 at 17:56; Status DC Fentanyl Citrate (Fentanyl 2ml Vial) 25 mcg PRN Q5MIN PRN IV MILD PAIN 1-3; Start 12/13/18 at 07:00; Stop 12/13/18 at 17:56; Status DC Fentanyl Citrate (Fentanyl 2ml Vial) 50 mcg PRN Q5MIN PRN IV MODERATE TO SEVERE PAIN Last administered on 12/13/18at 16:57; Start 12/13/18 at 07:00; Stop 12/13/18 at 17:56; Status DC Morphine Sulfate (Morphine Sulfate) 1 mg PRN Q10MIN PRN IV SEVERE PAIN 7-10; Start 12/13/18 at 07:00; Stop 12/13/18 at 17:56; Status DC Ringer's Solution 1,000 ml @ 30 mls/hr Q24H IV Last administered on 12/13/18at 06:45; Start 12/13/18 at 07:00; Stop 12/13/18 at 17:56; Status DC Lidocaine HCl (Xylocaine-Mpf 1% 2ml Vial) 2 ml PRN 1X PRN ID PRIOR TO IV START; Start 12/13/18 at 07:00; Stop 12/13/18 at 17:56; Status DC Hydromorphone HCl (Dilaudid) 0.5 mg PRN Q10MIN PRN IV SEV PAIN, Second choice; Start 12/13/18 at 07:00; Stop 12/13/18 at 17:56; Status DC Prochlorperazine Edisylate (Compazine) 5 mg PACU PRN PRN IV NAUSEA, MRX1; Start 12/13/18 at 07:00; Stop 12/13/18 at 17:56; Status DC Cefazolin Sodium/ Dextrose 50 ml @ 100 mls/hr 1X PREOP PRN IV PRIOR TO PROCEDURE Last administered on 12/13/18at 09:15; Start 12/13/18 at 06:00; Stop 12/13/18 at 18:00; Status DC Bacitracin 30682 unit/Sodium Chloride 1,000 ml @ 1,000 mls/hr 1X ONCE IRR Last administered on 12/13/18 09:33; Start 12/13/18 at 06:00; Stop 12/13/18 at 06:59; Status DC Bupivacaine HCl/ Epinephrine Bitart (Sensorcain-Mpf Epi 0.5%-1:[id number]) 30 ml STK-MED ONCE .ROUTE Last administered on 12/13/18 09:33; Start 12/13/18 at 06:23; Stop 12/13/18 at 07:23; Status DC Gelatin (Gelfoam Size 12-7mm) 1 each STK-MED ONCE .ROUTE Last administered on 12/13/18 09:33; Start 12/13/18 at 06:23; Stop 12/13/18 at 07:24; Status DC Ketorolac Tromethamine (Toradol For Or Only) 60 mg STK-MED ONCE .ROUTE Last administered on 12/13/18 09:33; Start 12/13/18 at 06:23; Stop 12/13/18 at 07:24; Status DC Thrombin 20,000 unit STK-MED ONCE TP Last administered on 12/13/18 09:33; Start 12/13/18 at 06:24; Stop 12/13/18 at 07:24; Status DC Rocuronium Reading (Zemuron) 50 mg STK-MED ONCE .ROUTE ; Start 12/13/18 at 08:23; Stop 12/13/18 at 08:24; Status DC Midazolam HCl (Versed) 2 mg STK-MED ONCE .ROUTE ; Start 12/13/18 at 08:23; Stop 12/13/18 at 08:24; Status DC Remifentanil HCl (Ultiva) 2 mg STK-MED ONCE IV ; Start 12/13/18 at 08:24; Stop 12/13/18 at 08:25; Status DC Fentanyl Citrate (Fentanyl 5ml Vial) 250 mcg STK-MED ONCE .ROUTE ; Start 12/13/18 at 08:24; Stop 12/13/18 at 08:25; Status DC Phenylephrine HCl (Romeo-Synephrine Inj) 10 mg STK-MED ONCE .ROUTE ; Start 12/13/18 at 09:14; Stop 12/13/18 at 09:15; Status DC Phenylephrine HCl (Romeo-Synephrine Inj) 10 mg STK-MED ONCE .ROUTE ; Start 12/13/18 at 09:14; Stop 12/13/18 at 09:15; Status DC Phenylephrine HCl (PHENYLEPHRINE in 0.9% NACL PF) 1 mg STK-MED ONCE IV ; Start 12/13/18 at 09:14; Stop 12/13/18 at 09:15; Status DC Propofol 50 ml @ As Directed STK-MED ONCE IV ; Start 12/13/18 at 09:15; Stop 12/13/18 at 09:16; Status DC Propofol 20 ml @ As Directed STK-MED ONCE IV ; Start 12/13/18 at 09:15; Stop 12/13/18 at 09:16; Status DC Lidocaine HCl (Lidocaine Pf 2% Vial) 5 ml STK-MED ONCE .ROUTE ; Start 12/13/18 at 09:15; Stop 12/13/18 at 09:16; Status DC Dexamethasone Sodium Phosphate (Decadron) 20 mg STK-MED ONCE .ROUTE ; Start 12/13/18 at 09:15; Stop 12/13/18 at 09:16; Status DC Ondansetron HCl (Zofran) 4 mg STK-MED ONCE .ROUTE ; Start 12/13/18 at 09:15; Stop 12/13/18 at 09:16; Status DC Propofol 50 ml @ As Directed STK-MED ONCE IV ; Start 12/13/18 at 12:16; Stop 12/13/18 at 12:17; Status DC Remifentanil HCl (Ultiva) 2 mg STK-MED ONCE IV ; Start 12/13/18 at 12:17; Stop 12/13/18 at 12:18; Status DC Cefazolin Sodium 100 ml @ As Directed STK-MED ONCE IV ; Start 12/13/18 at 12:11; Stop 12/13/18 at 13:11; Status DC Gelatin (Gelfoam Size 12-7mm) 1 each STK-MED ONCE .ROUTE Last administered on 12/13/18at 13:43; Start 12/13/18 at 12:42; Stop 12/13/18 at 13:42; Status DC Acetaminophen (Tylenol) 500 mg BID PO Last administered on 12/13/18at 20:55; Start 12/13/18 at 21:00 Docusate Sodium (Colace) 100 mg BID PO Last administered on 12/14/18at 07:41; Start 12/13/18 at 21:00 Multivitamins (Thera M Plus) 1 tab DAILY PO Last administered on 12/14/18at 07:41; Start 12/13/18 at 15:00 Fentanyl Citrate (Fentanyl 2ml Vial) 50 mcg PRN Q2HR PRN IV MODERATE TO SEVERE PAIN; Start 12/13/18 at 14:30 Acetaminophen (Tylenol) 650 mg PRN Q6HRS PRN PO MILD PAIN / TEMP; Start 12/13/18 at 14:30 Al Hydroxide/Mg Hydroxide (Mylanta Plus Xs) 30 ml PRN Q3HRS PRN PO HEARTBURN / GAS; Start 12/13/18 at 14:30 Calcium Carbonate/ Glycine (Tums) 500 mg PRN Q3HRS PRN PO INDIGESTION; Start 12/13/18 at 14:30 Diphenhydramine HCl (Benadryl) 25 mg PRN Q6HRS PRN PO ITCHING; Start 12/13/18 at 14:30 Naloxone HCl (Narcan) 0.1 mg PRN Q2MIN PRN IV ADMIN; Start 12/13/18 at 14:30 Sodium Chloride (Normal Saline Flush) 3 ml QSHIFT PRN IV AFTER MEDS AND BLOOD DRAWS; Start 12/13/18 at 14:30 Potassium Chloride/Dextrose/ Sod Cl 1,000 ml @ 75 mls/hr [id number] IV Last administered on 12/14/18at 00:34; Start 12/13/18 at 14:29; Stop 12/14/18 at 06:34; Status DC Oxycodone/ Acetaminophen (Percocet 5/325) 1 tab PRN Q4HRS PRN PO MILD PAIN, 1ST CHOICE Last administered on 12/14/18at 03:02; Start 12/13/18 at 14:30 Oxycodone/ Acetaminophen (Percocet 5/325) 2 tab PRN Q4HRS PRN PO MODERATE PAIN, SEVERE PAIN Last administered on 12/14/18at 07:41; Start 12/13/18 at 14:30 Methocarbamol (Robaxin) 750 mg PRN TID PRN PO MUSCLE SPASMS Last administered on 12/14/18at 06:19; Start 12/13/18 at 14:30 Docusate Sodium (Colace) 100 mg BID PO Last administered on 12/14/18at 07:41; Start 12/13/18 at 21:00 Magnesium Hydroxide (Milk Of Magnesia) 2,400 mg PRN Q12HR PRN PO CONSTIPATION; Start 12/13/18 at 14:30 Ondansetron HCl (Zofran) 4 mg PRN Q6HRS PRN IV NAUESA, 1ST CHOICE; Start 12/13/18 at 14:30 Cefazolin Sodium 1 gm/Dextrose 50 ml @ 100 mls/hr Q8HRS IV ; Start 12/13/18 at 22:00; Stop 12/14/18 at 14:29; Status UNV Glycopyrrolate (Robinul) 1 mg STK-MED ONCE .ROUTE ; Start 12/13/18 at 15:11; Stop 12/13/18 at 15:12; Status DC Neostigmine Methylsulfate (Neostigmine Methylsulfate) 5 mg STK-MED ONCE .ROUTE ; Start 12/13/18 at 15:11; Stop 12/13/18 at 15:12; Status DC Desflurane (Suprane) 90 ml STK-MED ONCE IH ; Start 12/13/18 at 15:42; Stop 12/13/18 at 15:43; Status DC Fentanyl Citrate (Fentanyl 2ml Vial) 100 mcg STK-MED ONCE .ROUTE ; Start 12/13/18 at 16:15; Stop 12/13/18 at 16:16; Status DC Cefazolin Sodium (Ancef) 1 gm Q8H IVP Last administered on 12/14/18at 12:19; Start 12/13/18 at 20:00; Stop 12/14/18 at 12:01; Status DC Sodium Chloride 500 ml @ 500 mls/hr 1X ONCE IV ; Start 12/14/18 at 13:00; Stop 12/14/18 at 13:59 Active Scripts Active Colace (Docusate Sodium) 100 Mg Capsule 100 Mg PO BID Reported Headache Relief Caplet (Aspirin/Acetaminophen/Caffeine) 1 Each Tablet 1 Each PO PRN PRN Centrum Silver Tablet (Multivits-Min/Fa/Lycopene/Lut) 1 Each Tablet 1 Each PO DAILY Tylenol (Acetaminophen) 325 Mg Tablet 500 Mg PO BID Vitals/I & O Vital Sign - Last 24 Hours 12/13/18 12/13/18 12/13/18 12/13/18 15:49 16:00 16:04 16:19 Temp 98.2 98.2 98.2 98.2 98.2 98.2 Pulse 92 78 73 Resp 18 19 18 B/P (MAP) 124/73 115/70 141/75 Pulse Ox 99 100 100 O2 Delivery Simple Mask Mask Simple Mask Simple Mask O2 Flow Rate 15 15 15 6 12/13/18 12/13/18 12/13/18 12/13/18 16:21 16:35 16:49 16:57 Temp 98.2 98.3 98.2 98.3 Pulse 71 60 Resp 18 20 18 19 B/P (MAP) 111/74 109/63 Pulse Ox 97 92 95 91 O2 Delivery Simple Mask Room Air Room Air Room Air O2 Flow Rate 10.0 12/13/18 12/13/18 12/13/18 12/13/18 17:04 17:30 17:30 17:35 Temp 98.3 98.9 98.3 98.9 Pulse 76 76 58 Resp 17 16 B/P (MAP) 117/68 108/70 (83) 113/68 (83) Pulse Ox 95 97 O2 Delivery Nasal Cannula Nasal Cannula Nasal Cannula O2 Flow Rate 2 2.0 2.0 12/13/18 12/13/18 12/13/18 12/13/18 17:45 18:00 18:15 18:45 Pulse 73 75 85 85 B/P (MAP) 105/74 (84) 106/69 (81) 104/72 (83) 104/63 (77) 12/13/18 12/13/18 12/13/18 12/13/18 19:00 19:45 20:15 21:15 Temp 98.0 98.0 Pulse 75 64 76 Resp 18 B/P (MAP) 97/56 (70) 108/68 (81) 107/70 (82) Pulse Ox 98 98 98 O2 Delivery Nasal Cannula Nasal Cannula Nasal Cannula Nasal Cannula O2 Flow Rate 2.0 2.0 2.0 2.0 12/13/18 12/13/18 12/14/18 12/14/18 22:21 23:00 03:00 03:02 Temp 98.0 98.9 98.0 98.9 Pulse 83 72 Resp 18 18 18 18 B/P (MAP) 111/66 (81) 120/58 (78) Pulse Ox 98 98 97 98 O2 Delivery Nasal Cannula Nasal Cannula Nasal Cannula Nasal Cannula O2 Flow Rate 2.0 2.0 2.0 2.0 12/14/18 12/14/18 12/14/18 12/14/18 04:00 06:21 07:41 08:02 Temp 99.3 99.3 Pulse 66 Resp 14 18 16 B/P (MAP) 95/57 (70) Pulse Ox 98 97 O2 Delivery Nasal Cannula Nasal Cannula Room Air O2 Flow Rate 2.0 2.0 12/14/18 12/14/18 12/14/18 08:45 10:15 11:27 Temp 99.2 99.2 Pulse 70 74 Resp 16 16 20 B/P (MAP) 76/46 (56) 94/68 (77) Pulse Ox 94 96 O2 Delivery Room Air Room Air Room Air Intake and Output 12/13/18 12/13/18 12/14/18 14:59 22:59 06:59 Intake Total 780 ml 120 ml Output Total 2375 ml 450 ml Balance -1595 ml -330 ml [facility] [employer] Dec 14, 2018 13:13
[2018-12-15] MEDS: METHOCARBAMOL 750 MG TABLET PO PRN (02:51)
[2018-12-15 02:58] VITALS: BP 110/65
[2018-12-15 06:31] VITALS: BP 103/71
[2018-12-15] MEDS: DOCUSATE SODIUM 100 MG CAPSULE. PO SCH (08:22)
[2018-12-15] MEDS: ACETAMINOPHEN 500 MG TABLET PO SCH (08:22)
[2018-12-15] MEDS: MULTIVITAMIN with MINERAL TABLET. PO SCH (08:22)
[2018-12-15] MEDS: oxyCODONE/APAP 5/325 1 TAB TABLET PO PRN ×2 (08:22→12:02)
[2018-12-15 08:25] VITALS: BP 106/62
[2018-12-15 10:58] VITALS: BP 98/59
[2018-12-15] MEDS ORDERED: OXYC1TAB15 PO (11:44)
--- NOTE | 2018-12-15 11:45 | DISCH ---
DISCHARGE INSTRUCTIONS Condition on Discharge Condition on Discharge: Stable Activity After Discharge Activity Instructions for Disc: Activity as tolerated, Avoid exertion, Walk in house Other activity instructions: ambualtion only exercise permitted; gradually increase time and distance Bathing Instructions: Shower-keep dressing dry, No Tub Bath until see Lifting Instructions after Dis: No heavy lifting, No pulling or pushing, Do not lift >10 pounds Exercise Instruction after Dis: Progress as tolerated Driving Instructions after Dis: No driving for 2 weeks Weight Bearing Status after Di: No restrictions, Full weight bearing, As tolerated Diet after Discharge Diet after Discharge: Regular Additional Diet Restrictions: resume home diet Liquid Texture: Thin Liquid Swallowing Supervision: None needed Wound Incision Care Wound/Incision Care: Ice to area for comfort, Keep wound/cast CDI, Keep wound elevated Other wound/incision instructi: may shower 48 hrs after surger;no direct water antibiotic cream/ointment t Wound Care Equipment: Dressings Checks after Discharge DC Comment: increase fruits, vegetables and fiber; attempt BM every 2-3 days Contacting the DRArnol after DC Call your doctor for: Concerns you may have Follow-Up Follow Up With: call [phone] for a 2 week post op appt with Dr. George's nurse Treatment/Equipment after DC Adaptive Equipment Issued: None Comment: may apply ice at least 3-4 times a day to incision EDWINA GEORGE MD Dec 15, 2018 11:45
--- NOTE | 2018-12-15 20:05 | PATHOLOGY ---
[facility] Accession Number: [id number] . 01 Material submitted: . vertebral column - LUMBAR DECOMPRESSION AND DISC . 01 Clinician provided ICD-10: M48.062 M43.16 M54.9 M54.16 . 01 Clinical history: . Lumbar stenosis with neurogenic claudication, spondylolithiasis, back pain, radiculopathy . 02 Diagnosis: Segments of fibrocartilaginous, adipose, and skeletal muscle tissue and bone, lumbar decompression and disc: - Degenerative changes of fibrocartilaginous tissue. LB/12/15/2018 . 02 Comment: There is no evidence of an acute inflammatory process or malignancy. (JPM/db; 12/15/2018) . 02 Electronically signed: . Eduardo Lucas MD, Pathologist NPI- [id number] . 01 Gross description: . The specimen is received in formalin, labeled "Mukund, III, Jonel, lumbar decompression and disc", are multiple irregular fragments of mcclure and yellow and gritty tissue possibly admixed with bone spicule measuring 3.0 x 2.6 x 0.5 cm in aggregate. [place] tissue is submitted in A1, after decalcification. ([facility]; 12/14/2018) SHS/SHS . 02 Pathologist provided ICD-10: M51.36 . 02 CPT . 564745, 222430 Specimen Comment: A courtesy copy of this report has been sent to Specimen Comment: [phone], . Specimen Comment: Report sent to / DR PATEL Performed at: [address], [place], [place] [id number] MD Jagdish Barrera MD Phone: [phone] Performed at: 02 [facility] [address] [place], [place] [id number] MD Eduardo Lucas MD Phone: [phone]
== END 2018-12-15 12:42 | disposition home or self-care (01) | DRG 455 ==
LOC: OPSVCIP 05:53 → 4 SOUTHEST 17:35
PROVIDERS: ADMIT Neurological Surgery; ATTEND Neurological Surgery
PROC: 0SG00A0 Fusion of Lumbar Vertebral Joint with Interbody Fusion Device, Anterior Approach, Anterior Column, Open Approach (ICD-10-PCS; 2018-12-13)
PROC: 0SB20ZZ Excision of Lumbar Vertebral Disc, Open Approach (ICD-10-PCS; 2018-12-13)
PROC: 00NY0ZZ Release Lumbar Spinal Cord, Open Approach (ICD-10-PCS; 2018-12-13)
PROC: 07DR3ZZ Extraction of Iliac Bone Marrow, Percutaneous Approach (ICD-10-PCS; 2018-12-13)
PROC: 0SG10K1 Fusion of 2 or more Lumbar Vertebral Joints with Nonautologous Tissue Substitute, Posterior Approach, Posterior Column, Open Approach (ICD-10-PCS; principal; 2018-12-13 08:30)
DX: M48.062 Spinal stenosis, lumbar region with neurogenic claudication (principal); M43.16 Spondylolisthesis, lumbar region; M19.90 Unspecified osteoarthritis, unspecified site; M54.16 Radiculopathy, lumbar region; M41.56 Other secondary scoliosis, lumbar region; Z82.49 Family history of ischemic heart disease and other diseases of the circulatory system
CPT/HCPCS: 36415; 72131; 76000; 85018; 86850; 86900; 86901; 88304; 88311; A7015; C1713; C1893; J0690; J0696; J1100; J1885; J2001; J2250; J2370; J2405; J2704; J2710; J3010; J3490; J7030; J7120; 97110; 97116; 97530

== ENCOUNTER → 2019-09-28 | Outpatient (CLI) | payer BC, MEDICARE ==
[~2019-09-28] MED LIST changes: -CETI10TA22 PO; +CETI10TA24 PO
--- NOTE | 2019-09-28 15:46 | RAD ---
CT lumbar spine without contrast PQRS statement: CT scans at this facility use dose reduction including either automated exposure control, iterative reconstructions, and /or weight based radiation dosing via mA and kV modification when appropriate to reduce radiation dose to as low as reasonably achievable. HISTORY: Postop lumbar spinal surgery, left leg pain. COMPARISON: CT lumbar spine December 13, 2018. FINDINGS: Left dextroconvex lumbar scoliosis again demonstrated. Lumbar vertebral body height and alignment intact. Grade 1 retrolisthesis of L1 on L2, and L2 on L3, which is stable. There is grade 1 anterolisthesis of L4 on L5 which has been reduced currently measures 3 mm, previously measured 6 mm. No fracture. No spondylolysis. Since the prior exam there are postoperative changes of posterior instrumentation with pedicle screws and rods L3-L5, L4-L5 discectomy and fusion with interbody spacer, L4 laminotomy, and bilateral L4-L5 foraminotomies. No bone lysis surrounding the hardware to suggest loosening and no malpositioning of the hardware. There is also probable left L2 laminotomy new from prior study. Paraspinal tissues unremarkable. Disc disease described below. Lower thoracic spine demonstrates shallow disc bulges or protrusions may contribute to mild spinal canal stenosis. L1-L2: Posterior disc height loss, disc bulge, anterior disc osteophyte, facet hypertrophy, probable mild spinal canal stenosis, mild left neural foraminal stenosis and moderate right neural foraminal stenosis. L2-L3: Disc height loss and vacuum disc, L2 laminotomy perhaps for prior microdiscectomy as there is less visible disc bulge density since the prior exam. Presumed resection of at least a portion of the ligament flavum via laminotomy with less ligament density present. The dorsal epidural fat density is absent presumably replaced by scar tissue. There is a least mild to moderate bony spinal canal stenosis similar to the prior exam. Moderate neural foraminal stenoses grossly stable. L3-L4: Extensive streak artifact from the hardware somewhat limits bony and soft tissue detail. Disc bulge with bulky facet spurs, and left lateral endplate spurring, with probable moderate to severe spinal canal stenosis and left neural foraminal stenosis. Mild right neural foraminal stenosis. Advanced grossly stable. L4-L5: Since the prior exam there has been L4 laminotomy, foraminotomy L4-5, and discectomy and fusion. Bony spinal canal grossly patent. There is extensive soft tissue density throughout the laminectomy and spinal canal and foramina presumably scar tissue although underlying residual disc fragment would be difficult to exclude in this setting. L5-S1: Marked disc height loss, vacuum disc, moderate disc bulge with annulus osteophytes, lateral vertebral endplate spurring, and facet spurring. Moderate neural foraminal stenoses. There is mild spinal canal stenosis, additionally there is ossified disc annulus contributing to lateral recess narrowing more so on the left where annulus ossified could contact the left S1 nerve. This is stable. IMPRESSION: 1. No acute osseous injury. 2. Since the prior exam there are postoperative changes of L4 laminotomy, L4-L5 discectomy, L4-L5 foraminotomy, and fusion with interbody spacer at L4-L5 and pedicle screws and rods L3-L5. Separately there is left L2 laminotomy presumably for microdiscectomy at L2-L3 since the prior study. See discussion above. 3. Lumbar scoliosis and multilevel disc disease and arthritic change with spinal canal and neural foraminal stenoses as described above. Electronically signed by: Freddy Mcmillan MD (09/28/2019 3:42 PM) [id number]
--- NOTE | 2019-09-28 16:43 | RAD ---
MRI of the lumbar spine without contrast 09/28/2019 CLINICAL HISTORY: Low back pain which radiates down both legs, left greater than right. History of previous lumbar surgery. TECHNIQUE: Unenhanced T1-weighted and T2-weighted sagittal and axial and inversion recovery sagittal images of the lumbar spine were obtained. FINDINGS: Comparison is made to a CT scan of the lumbar spine performed earlier today. Mild S-shaped curvature of the thoracolumbar spine is seen. The patient is post posterolateral fusion using what appear to be pedicle screws and stabilizing rods. Bone graft material is seen within the L4-5 disc space. Degenerative signal changes and loss of height are seen involving all of the disks of the lower thoracic and throughout the lumbar spine. Degenerative signal changes are seen within the marrow surrounding these discs. A 1.3 cm hemangioma is seen involving the T10 vertebral body. The conus medullaris is normal morphology, position, and signal characteristics. At the L1-2 disc space there is a mild to moderate generalized disc bulge. Degenerative changes are seen involving the facet joints bilaterally. There is mild ligamentum flavum hypertrophy bilaterally. There is prominence of the posterior epidural fat. These findings when combined result in mild central spinal canal stenosis. No neural foraminal stenosis is seen. At the L2-3 disc space, the patient is post left hemilaminotomy. There is a mild to moderate generalized disc bulge. Posterior vertebral body osteophyte formation is seen. Degenerative changes are seen involving the facet joints bilaterally. These findings result in mild to moderate right sided central spinal canal stenosis. Mild bilateral neural foraminal stenosis is seen. At the L3-4 disc space degenerative changes are seen involving the facet joints bilaterally. There is mild ligamentum flavum hypertrophy bilaterally. These findings result in mild central spinal canal stenosis. Mild left neural foraminal stenosis is seen. The right neural foramen is patent. At the L4-5 level, the patient is post laminectomy. Degenerative changes are seen involving the facet joints bilaterally. No significant central spinal canal stenosis is seen. Mild bilateral neural foraminal stenosis is seen. The L5-S1 disc space is a mild generalized disc bulge. Degenerative changes are seen involving the facet joints bilaterally. There is mild ligamentum flavum hypertrophy bilaterally. These findings do not result in significant central spinal canal stenosis. Mild bilateral neural foraminal stenosis is seen. IMPRESSION: 1. Postsurgical changes are seen involving the lumbar spine as discussed above. 2. The changes of degenerative disc disease are seen involving the lumbar spine. These findings result in mild central spinal canal stenosis at L1-2 and L3-4 and mild to moderate right-sided central spinal canal stenosis at L2-3. Mild bilateral neural foraminal stenosis is seen at L2-3, L4-5 and L5-S1. Mild left neural foraminal stenosis is seen at L3-4. Electronically signed by: Jun Gayle MD (09/28/2019 4:40 PM) [id number]
== END | disposition home or self-care (01) ==
LOC: MRI 15:23
PROVIDERS: ATTEND Neurological Surgery
DX: M51.16 Intervertebral disc disorders with radiculopathy, lumbar region (principal); M47.26 Other spondylosis with radiculopathy, lumbar region; M53.3 Sacrococcygeal disorders, not elsewhere classified; M48.07 Spinal stenosis, lumbosacral region; M89.38 Hypertrophy of bone, other site; M47.818 Spondylosis without myelopathy or radiculopathy, sacral and sacrococcygeal region; M41.86 Other forms of scoliosis, lumbar region; M25.78 Osteophyte, vertebrae; Z98.1 Arthrodesis status
CPT/HCPCS: 72131; 72148

== ENCOUNTER → 2021-10-25 | Outpatient (CLI) | payer BC, MEDICARE ==
[~2021-10-25] MED LIST changes: -CETI10TA24 PO; +CETI10TA74 PO; -CLIN150C14 PO; +CLIN150C16 PO; +METH-562 PO; -METH750T2 PO; +REGADENOSON 0.4 MG/5 ML DISP.SYRIN. IV ONE
--- NOTE | 2021-10-25 13:49 | RAD ---
MR#: [id number] Date of Study: 10/25/2021 Ordering Physician: ROBERT RYAN Referring Physician: PAVEL KHAN Tech: RT Carlos Anderson) (N) APPROVED REPORT Test Type: Pharmacological Stress Nurse/Tech: Ashley Parsons RN Test Indications: pre-op surgery/abnormal EKG Cardiac History: No known cardiac Medications: See Electronic Medical Record Medical History: See Electronic Medical Record Resting ECG: SR Resting Heart Rate: 60 bpm Resting Blood Pressure: 164/86mmHg Pretest Chest Pain: No chest pain Nurse/Tech Notes S1,S2 and lungs clear to auscultation. Consent: The procedure was explained to the patient in lay terms. Informed consent was witnessed. Carlos eout was entered into [employer]. History and Stress Test performed by RT Carlos Anderson) (N) Pharm. Details Pharmacologic stress testing was performed using 0.4mg per 5ml of regadenoson given intravenously ove r 7-10 seconds. Stress Symptoms No chest pain or symptoms. POST EXERCISE Reason for Termination: Infusion complete Target HR: No Max HR: 96 bpm 77% of Maximum Predicted HR: 124 bpm Max Blood Pressure: 163/81mmHg Blood Pressure response to exercise: Normal blood pressure response during stress. Heart Rate response to exercise: WNL Chest Pain: No. Arrhythmia: No. ST Change: No. INTERPRETATION Stress EKG Conclusion: The resting EKG shows a sinus rhythm with a septal Q wave and nonspecific ST s egment changes. The stress EKG shows no significant changes from baseline. Abnormal baseline EKG but no EKG evidence of stress-induced ischemia. Imaging Protocol IMAGE PROTOCOL: Rest Tc-99m/stress Tc-99m 1 day Rest: Stress: Viability: Radiopharm.Tc99m NpxprjwsrYr33k Sestamibi Zmpn44wPe 32.8mCi Duration 13min. 13min. Img Date 10/25/2021 10/25/2021 Inj-Img Cccl09kob. 60min. Rest Admin Site:IV - Right AntecubitalAdministrator:RT Carlos Anderson)(N) Stress Admin Site: IV - Right AntecubitalAdministrator: Pam Vaughn RT (R)(N) STRESS DATA End Diast. Vol.89.0mlLVEDV index BSA50.0ml End Syst. Vol.25.0mlLVESV index BSA14.0ml Myocardial Yrhe296.0gEject. Jmeesolk68.0% Stress Scores Regional WT0.00Summed WT3.00 Regional WM0.00Summed WM0.00 LV Perfusion The stress scans showed no significant defects. The rest scans showed no significant defects. Nuclear imaging shows no reversible ischemia or infarct. Wall Motion LV systolic function is intact with an ejection fraction of 72%. LV Perf. Quant 17 Seg. SSS0.00 17 Seg. SRS0.00 17 Seg. SDS0.00 Stress Defect Extent (% LAD)0.00Rest Defect Extent (% LAD)0.00Rev. Defect Extent (% LAD)0.00 Stress Defect Extent (% LCX) 0.00Rest Defect Extent (% LCX)0.00Rev. Defect Extent (% LCX)0.00 Stress Defect Extent (% RCA)0.00Rest Defect Extent (% RCA)0.00Rev. Defect Extent (% RCA)0.00 Stress Defect Extent (% FARRAH)0.00Rest Defect Extent (% FARRAH)0.00Rev. Defect Extent (% FARRAH)0.00 Conclusion 1. Abnormal baseline EKG but no EKG evidence of stress-induced ischemia. 2. Nuclear imaging shows no reversible ischemia or infarct. 3. Intact LV systolic function with an ejection fraction of 72%. 4. Moderately low to low risk Lexiscan nuclear stress test. Signed by : Atif Tesfaye MD Electronically Approved : 10/25/2021 13:49:00
== END ==
LOC: NM 08:58
PROVIDERS: ATTEND Internal Medicine Cardiovascular Disease
DX: Z01.810 Encounter for preprocedural cardiovascular examination (principal); R94.31 Abnormal electrocardiogram [ECG] [EKG]
CPT/HCPCS: 78452; 93017; A9500; J2785

== ENCOUNTER → 2021-11-14 | Outpatient (CLI) | payer BC, MEDICARE ==
[~2021-11-14] MED LIST changes: -REGADENOSON 0.4 MG/5 ML DISP.SYRIN. IV ONE
--- NOTE | 2021-11-14 14:17 | CARD ---
MR#: [id number] Date of Study: 11/14/2021 Ordering Physician: ROBERT RYAN, Referring Physician: Mari KHAN: Anne Olmedo [facility] APPROVED REPORT EXAM: Two-dimensional and M-mode echocardiogram with Doppler and color Doppler. Other Information Quality : GoodHR: 65bpm Rhythm : NSR INDICATION Abnormal ECG Pre-Op 2D DIMENSIONS RVDd3.5 (2.9-3.5cm)Left Atrium(2D)4.8 (1.6-4.0cm) IVSd1.1 (0.7-1.1cm)Aortic Root(2D)3.4 (2.0-3.7cm) LVDd4.2 (3.9-5.9cm)LVOT Diameter2.2 (1.8-2.4cm) PWd1.1 (0.7-1.1cm)LVDs2.4 (2.5-4.0cm) FS (%) 43.9 %SV59.0 ml LVEF(%)75.5 (>50%) Aortic Valve AoV Peak Gordy.195.6cm/sAoV VTI45.8cm AO Peak GR.15.3mmHgLVOT Peak Gordy.263.0cm/s LVOT VTI 54.37cmAO Mean GR.10mmHg EITAN (VMAX)4.79ui9IEK (VTI)4.51cm2 AI P 1/2 [id number] Mitral Valve MV E Vuhollqf84.1cm/sMV DECEL [id number] MV A Vybfavzs53.1cm/sMV MFU31oo E/A Ratio0.7MV A Terthvqx388jf MVA (PHT)2.93cm2 TDI E/Lateral E'5.5E/Medial E'8.8 Tricuspid Valve TR P. Mvjgmloe457hw/sTR Peak Gr.17mmHg Pulmonary Vein S1 Yfguryub58.5cm/sD2 Xphwgehm76.4cm/s PVa dtqxmkyu958desr LEFT VENTRICLE The left ventricle is normal size. There is normal left ventricular wall thickness. The left ventricu lar ejection fraction is within the normal range. EF 55% There is normal LV segmental wall motion. Ti ssue Doppler imaging reveals mild left ventricular diastolic dysfunction. No left ventricle thrombus noted on this study. There is no ventricular septal defect visualized. There is no left ventricular a neurysm. There is no mass noted in the left ventricle. RIGHT VENTRICLE The right ventricle is normal size. There is normal right ventricular wall thickness. The right ventr icular systolic function is normal. ATRIA The left atrium size is normal. The right atrium size is normal. The interatrial septum is intact wit h no evidence for an atrial septal defect or patent foramen ovale as noted on 2-D or Doppler imaging. AORTIC VALVE The aortic valve is normal in structure and function. Doppler and Color Flow revealed mild aortic reg urgitation. There is no aortic valvular stenosis. There is no aortic valvular vegetation. MITRAL VALVE The mitral valve is normal in structure and function. There is no evidence of mitral valve prolapse. There is no mitral valve stenosis. Doppler and Color Flow revealed mild mitral regurgitation. TRICUSPID VALVE The tricuspid valve is normal in structure and function. Doppler and Color Flow revealed mild tricusp id regurgitation. The pulmonary artery systolic pressure is estimated at less than 30 mmHg. There is no tricuspid valve prolapse or vegetation. There is no tricuspid valve stenosis. PULMONIC VALVE There is no pulmonic valvular regurgitation. There is no pulmonic valvular stenosis. GREAT VESSELS The aortic root is normal in size. The ascending aorta is normal in size. The IVC is normal in size a nd collapses >50% with inspiration. PERICARDIAL EFFUSION There is no pleural effusion. There is no evidence of significant pericardial effusion. Critical Notification Critical Value: No <Conclusion> The left ventricular ejection fraction is within the normal range. EF 55% There is normal LV segmental wall motion. Signed by : German Vasquez, Electronically Approved : 11/14/2021 14:16:52
== END ==
LOC: ECHO 12:37
PROVIDERS: ATTEND Internal Medicine Cardiovascular Disease
DX: Z01.810 Encounter for preprocedural cardiovascular examination (principal); I08.3 Combined rheumatic disorders of mitral, aortic and tricuspid valves
CPT/HCPCS: 93306; C8929